=== PATIENT | male | born 1990 | race Two or more races ===

== ENCOUNTER 2019-03-09 11:31 | Emergency (ER) | payer OTHER ==
[2019-03-09 11:42] VITALS: BP 132/78
[2019-03-09] MEDS ORDERED: IBUPROFEN 800 MG TABLET PO ONE (11:43)
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
== END 2019-03-09 12:41 | disposition home or self-care (01) ==
LOC: ER 11:31
DX: S09.90XA Unspecified injury of head, initial encounter (principal); S50.02XA Contusion of left elbow, initial encounter; S80.12XA Contusion of left lower leg, initial encounter; M79.10 Myalgia, unspecified site; V89.2XXA Person injured in unspecified motor-vehicle accident, traffic, initial encounter; F17.200 Nicotine dependence, unspecified, uncomplicated
CPT/HCPCS: 99283